=== PATIENT | female | born 1985 | race Caucasian/White ===

== ENCOUNTER 2023-03-02 09:42 | Emergency (ER) | payer OTHER, SELFPAY ==
--- NOTE | 2023-03-02 09:44 | ED.ABDPAIN ---
HPI - Abdominal Pain General Chief Complaint: Abdominal Pain Stated Complaint: L SIDE PAIN Time Seen by Provider: 03/02/23 09:44 Source: patient and RN notes reviewed History of Present Illness HPI narrative: Patient is a 37-year-old female who presents to urgent care with complaints of severe left flank pain that started approximately 3 days ago. Patient states she has had some decreased urinary output and has recently increased her caffeine and soda intake. Denies any pain with urination, hematuria, abdominal discomfort. States that she does not have any past medical history of kidney stones or pyelonephritis. Patient states she has had nausea without vomiting. States that the symptoms started after she was taking doxycycline and steroids for a sinus infection however has never had issues with those medications in the past. Denies any recurrent urinary tract infections. No other acute complaints. Patient is in obvious pain but otherwise no acute distress noted. Patient aware of the plan of care. Some parts of this dictation were generated by voice recognition software and may contain typographical and/or grammatical inaccuracies. Related Data Home Medications Medication Instructions Recorded Confirmed omeprazole 20 mg capsule,delayed 20 mg PO DAILY 03/02/23 03/02/23 release Allergies Allergy/AdvReac Type Severity Reaction Status Date / Time No Known Allergies Allergy Unverified 03/02/23 09:52 Review of Systems Review of Systems: CONSTITUTIONAL: Denies fever, chills, or sweats. EYES: Denies visual changes, redness, or discharge. ENT: Denies rhinorrhea, congestion, sore throat, or otalgia. CARDIOVASCULAR: Denies chest pain, palpitations, or edema. RESPIRATORY: Denies cough or dyspnea. GASTROINTESTINAL: Denies abdominal pain, nausea, vomiting, or diarrhea. GENITOURINARY: Reports of decreased urinary output and severe left flank pain SKIN: Denies rash or itching. MUSCULOSKELETAL: Denies back pain, joint pain, or myalgia. NEUROLOGIC: Denies headache, numbness, or weakness. All other systems reviewed are negative, except as documented in HPI. [facility] Past Medical History Medical History (Updated 03/02/23 @ 10:14 by REN Camejo) Acid reflux Vaginal delivery x 3 Surgical History Surgical History (Updated 01/09/20 @ 14:43 by Kami Whitlock MODEL SET ARTIST) History of cholecystectomy Social History Social History Smoking status: Never smoker Second hand tobacco smoke exposure: No Alcohol intake: never Comments At the time of my signature, I reviewed and agree with the nursing past medical, surgical, social, and family history. There is no relevant family history pertinent to the patient complaint. Exam Narrative: GENERAL: This is a well-nourished, well-developed patient. Tearful HEAD: normocephalic, atraumatic. EYES: PERRL. Sclera clear/white. Vision is grossly intact. EARS: External ears normal NOSE: External nose normal with no obvious nasal discharge, nares without redness, no rhinorrhea. THROAT: Mucous membranes moist NECK: Neck supple, RESPIRATORY: Clear to auscultation. Breath sounds equal bilaterally. No wheezes, rales, or rhonchi. GASTROINTESTINAL: Abdomen soft, mild left upper abdominal rebound tenderness, nondistended. Bowel sounds are active. SKIN: warm, intact with no suspicious lesions or rash, good texture and turgor. NEURO: awake, alert, and oriented to person, place and time. There were no obvious focal neurologic abnormalities. EXTREMITIES: No clubbing, cyanosis, or edema. BACK: Moderate to severe left CVA tenderness Course Course Level of Care: Express Care Visit Vital Signs Vital signs: Vital Signs Temperature 97.5 F L 03/02/23 09:55 Pulse Rate 73 03/02/23 09:55 Respiratory Rate 16 03/02/23 09:55 Blood Pressure 134/82 03/02/23 09:55 Pulse Oximetry 100 03/02/23 09:55 Temperature 97.5 F L 03/02/23 09:55 Pulse Rate 73 03/02/23
[2023-03-02 09:55] VITALS: BP 134/82; PULSE 73; RESP 16; TEMP 36.4; O2SAT 100
== END 2023-03-02 10:18 | disposition short-term general hospital (02) ==
PROVIDERS: Emergency Provider Nurse Practitioner Family; PCP Family Medicine
DX: R10.9 Unspecified abdominal pain (principal); K21.9 Gastro-esophageal reflux disease without esophagitis
CPT/HCPCS: 81003; 87086; 87088; 99213; G0463

== ENCOUNTER 2023-09-14 13:48 | Outpatient (CLI) | payer OTHER, SELFPAY ==
--- NOTE | 2023-09-14 14:19 | ECG_ITS ---
Measurements Intervals [place] Rate: 78 P: 21 AL: 144 QRS: 8 QRSD: 105 T: 14 QT: 365 QTc: 418 Interpretive Statements SINUS RHYTHM NO PREVIOUS ECG AVAILABLE FOR COMPARISON Electronically Signed On 09-14-2023 20:33:29 CDT by Mandie Amanda M.D.
[2023-09-14 14:36] LABS: Basophils Absolute Auto 0.1 K/mm3 (0.0-0.1); Basophils Percent Auto 0.5 % (0.2-1.2); Eosinophils Absolute Auto 0.2 K/mm3 (0-0.3); Eosinophils Percent Auto 1.5 % (0-4.4); Hematocrit 39.6 % (37.0-47.0); Hemoglobin 12.7 g/dL (12.0-15.0); Immature Granulocyte Absolute 0.05 K/mm3 (0.00-0.031); Immature Granulocyte Percent A 0.5 % (0-0.5); Lymphocytes Absolute Auto 4.35 K/mm3 (0.9-3.2); Lymphocytes Percent Auto 40.6 % (18.3-44.2); Mean Corpuscular HGB Conc 32.1 g/dl (32-36); Mean Corpuscular Hemoglobin 28.7 pg (26-34); Mean Corpuscular Volume 89.4 fl (80-100); Mean Platelet Volume 8.9 fl (7.4-10.4); Monocytes Absolute Auto 0.6 K/mm3 (0.1-0.6); Monocytes Percent Auto 5.7 % (2.6-8.5); Neutrophils Absolute Auto 5.5 K/mm3 (1.3-6.7); Neutrophils Percent Auto 51.2 % (45.5-73.1); Platelet Count Result 376 k/mm3 (150-375); Red Blood Count 4.43 M/mm3 (4.2-5.4); Red Cell Distribution Width 13.4 % (11.5-14.5); White Blood Count 10.7 K/mm3 (4.5-10.0)
[2023-09-14 14:48] LABS: Alanine Aminotransferase 41 U/L (6-35); Albumin Level 4.4 g/dL (3.5-5.1); Alkaline Phosphatase 65 U/L (38-126); Anion Gap 8 mmol/L (8-16); Aspartate Amino Transferase 25 U/L (14-36); Bilirubin,Total 0.4 mg/dL (0.2-1.3); Blood Urea Nitrogen 13 mg/dL (7-17); Calcium 8.9 mg/dL (8.4-10.2); Carbon Dioxide 25 mmol/L (22-30); Chloride 104 mmol/L (98-107); Estimated Glomerular Filt Rate > 60; Glucose 85 mg/dL (65-110); Partial Thromboplastin Time 28.5 SECONDS (22.3-36.8); Potassium 3.5 mmol/L (3.4-5.0); Prothrombin Time 13.3 Seconds (11.1-14.7); Sodium 137 mmol/L (137-145)
== END 2023-09-14 13:49 | disposition home or self-care (01) ==
LOC: ANHSURGERY 13:51
PROVIDERS: PCP Family Medicine; Visit Provider Urology
DX: Z01.818 Encounter for other preprocedural examination (principal); N81.4 Uterovaginal prolapse, unspecified; N39.3 Stress incontinence (female) (male)
CPT/HCPCS: 36415; 80053; 85025; 85610; 85730; 86850; 86900; 86901; 93005

== ENCOUNTER 2023-09-26 00:55 | Day surgery (SDC) | payer OTHER, SELFPAY ==
--- NOTE | 2023-09-14 13:38 | PC.NURSE ---
Addendum entered by Rosa Elena Smith RN 09/14/23 14:21: PT AWARE THAT SHE CAN TAKE UBRELVY DAY OF SURGERY IF NEEDED Original Note: PRE-OP INSTRUCTIONS, PLEASE READ CAREFULLY Report to the Outpatient Waiting Room, entrance under the green pavilion located off [facility], at time _0930_ on date _09/26/23_. Planned Procedure Time: _1130_. PACK A SMALL OVERNIGHT BAG AND LEAVE IN THE CAR Time changes happen often and if your time is changed the preop area will call you the afternoon before. - You and your visitor will be asked to self-screen and do not enter if you have any COVID symptoms. - A mask is optional within the hospital at this time. -VISITING HOURS 8AM-8PM Patients may have clear liquids (water, carbonated beverages, clear teas, apple juice) until 3 hours prior to surgery (0830 AM) with a maximum of 20 ounces. - No food from midnight until time of surgery Take the following medications with a SIP of water the morning of surgery: _NONE_ DO NOT STOP ANY OF YOUR OTHER PRESCRIPTION MEDICATIONS PRIOR TO SURGERY ?EXCEPT THE FOLLOWING Medications to discontinue per physician ___NONE____, Date to take last dose Please no make-up, nail swedish, hairspray, perfume, deodorant, or body powder the day of surgery. No jewelry (including any body piercings) or valuables the day of surgery, leave them at home. Please take a shower or bath the night before, or the morning of, surgery with an antibacterial soap. Wear comfortable, loose fitting clothing. - Jewelry must be removed prior to entering the operating room. Rings and piercings that are not removed may be cut off. - The hospital will not accept responsibility for valuables. - Please leave all valuables, including medications, at home the day of surgery. If you are going home after surgery, a licensed patient transportation driver must drive you home. - NO public transportation without another adult if you receive anesthesia. - We recommend that an adult stay with you for 24 hours following discharge. - We also recommend that you do not drive, make important decision, drink alcoholic beverages, or take any drugs that were not prescribed by your health care provider for at least 24 hours after your discharge time. Follow any additional instructions given to you from your surgeon. If you or anyone in your household have experienced Covid symptoms in the past week, please notify your surgeon or the nurse liaison at the phone number below for possible testing. Instructions given to _PATIENT_and asked if any additional questions and then verbalized understanding. Patient advised to call surgeon office or pre surgery nurse liaison [phone] if any additional questions.
[2023-09-14 14:00] VITALS: BP 136/80; PULSE 88; RESP 20; TEMP 36.5; O2SAT 99; BMI 45.1
--- NOTE | 2023-09-23 14:39 | WPDANESEPPF ---
Anes - Initial Pre Proc Eval Procedure: Operation Date: 09/26/23 11:30 Proposed Procedures p Robotic Sacrocolpopexy - Cr Zavala MD s Urethral Sling, - Cr Zavala MD s Robotic Assisted Supracervical Hysterectomy With Bilateral Salpingectomy - Caitlin Lala MD Date/Time: 09/23/23 14:39 Surgeon: Cr Zavala MD Pre Op Diagnosis: uterovaginal prolapse, stress incontience Patient Data Age: 38 Gender: F Height: 1.73 m Weight: 134.6 kg Last Vital Signs Temp 97.7 F 09/14/23 14:00 Pulse 88 09/14/23 14:00 Resp 20 09/14/23 14:00 BP 136/80 09/14/23 14:00 Pulse Ox 99 09/14/23 14:00 O2 Del Method Room Air 09/14/23 14:00 Allergies Allergy/AdvReac Type Severity Reaction Status Date / Time No Known Allergies Allergy Verified 09/26/23 09:32 Home Medications Medication Instructions Recorded Confirmed Type omeprazole 20 mg capsule,delayed 20 mg PO DAILY 03/02/23 09/26/23 History release ubrogepant 100 mg tablet (Ubrelvy) 100 mg PO ONCE PRN Migraine 09/14/23 09/26/23 History Headache Patient hx anesthesia problems: none Family hx anesthesia problems: none Results Review: All pre-operative results and documents have been reviewed as part of the pre-operative evaluation. [facility] Past Medical History Medical History Acid reflux History of endometrial biopsy 06/23/2023 Uterine prolapse affecting , antepartum Vaginal delivery x 3 Surgical History Surgical History History of cholecystectomy Social History Social History Smoking status: Never smoker Second hand tobacco smoke exposure: No Alcohol intake: never Substance use: never Substance use type: does not use Lack of Transportation: No Lack of Food: Never True Current Housing: I Have Housing Concerned About Future Housing: No Difficulty Paying Gas/Electric Bills: No Difficulty Paying for Meds: No Currently Unemployed: No Education: Trade/Vocational Certificate Difficulty w/ Childcare or Family Care: No Living arrangements: with family Occupation/Education: occupation Gender identity (if verbalized by the patient): Female Sexual Orientation (if Verbalized by the Patient): Straight or Heterosexual Spiritual care concerns: No Anes - Eval Final PreProcedure Day of Procedure 09/23/23 14:39 Patient weight: normal Heart: regular rate and rhythm Lungs: clear to auscultation Airway: Mallampati scale class II Neurological: alert and oriented Last oral intake: >/= 8 hours ASA classification: III Emergent: no Anesthetic plan: proceed Anesthesia type and monitoring: general ETT and standard monitoring Results Review: All pre-operative results and documents have been reviewed as part of the pre-operative evaluation. Informed Consent: The patient's anesthetic plan and its attendant risks and benefits were discussed with the patient/family/POA. Questions were solicited and answers provided to the satisfaction of the patient/family/POA.
--- NOTE | 2023-09-25 09:29 | PM.IMHP ---
H&P: HPI History of Present Illness Date/Time: 09/25/23 09:29 Chief Complaint: surgical procedure Narrative: this is a young woman with uterine prolapse as well as stress incontinence Review of Systems Review of Systems: All systems reviewed & are unremarkable except as noted in HPI and below PMFSH Past Medical History Medical History (Updated 09/25/23 @ 09:30 by Cr Zavala MD) Acid reflux History of endometrial biopsy 06/23/2023 Uterine prolapse affecting , antepartum Vaginal delivery x 3 Surgical History Surgical History History of cholecystectomy Social History Social History Smoking status: Never smoker Second hand tobacco smoke exposure: No Alcohol intake: never Substance use: never Substance use type: does not use Lack of Transportation: No Lack of Food: Never True Current Housing: I Have Housing Concerned About Future Housing: No Difficulty Paying Gas/Electric Bills: No Difficulty Paying for Meds: No Currently Unemployed: No Education: Trade/Vocational Certificate Difficulty w/ Childcare or Family Care: No Living arrangements: with family Occupation/Education: occupation Gender identity (if verbalized by the patient): Female Sexual Orientation (if Verbalized by the Patient): Straight or Heterosexual Spiritual care concerns: No Meds Home Medications and Allergies Home Medications Medication Instructions Recorded Confirmed Type omeprazole 20 mg capsule,delayed 20 mg PO DAILY 03/02/23 09/14/23 History release ubrogepant 100 mg tablet (Ubrelvy) 100 mg PO ONCE PRN Migraine 09/14/23 09/14/23 History Headache Allergies Allergy/AdvReac Type Severity Reaction Status Date / Time No Known Allergies Allergy Verified 09/14/23 13:59 Exam Narrative: no acute distress obese alert and orient x3 normal breathing uterine prolapse to the introitus urethral mobility Assessment and Plan Assessment and plan (1) MIKA (stress urinary incontinence, female): Code(s): N39.3 - Stress incontinence (female) (male) Status: Acute (2) Uterine prolapse: Code(s): N81.4 - Uterovaginal prolapse, unspecified Status: Acute Plan robotic colpopexy and urethral sling. She understands risks of bleeding, infection, damage to surrounding organs, damage to the urinary tract, recurrence of prolapse, vaginal mesh exposure, obstructive voiding requiring secondary procedure, she understands the risk of recurrence of prolapse. We discussed issues surrounding prolapse repair in young women. Weight loss encouraged preoperatively
--- NOTE | 2023-09-25 20:57 | PM.IMHP ---
H&P: HPI History of Present Illness Date/Time: 09/25/23 20:57 Chief Complaint: uterine prolapse Narrative: Katya is a 38yo [id number] who presents for scheduled surgery; hysterectomy due to uterine prolapse. She had a normal EMB. Pap was NILM/HPV neg. She reports her cycles are regular, but very heavy and very painful. She has to wear tampons with her pads and will bleed through them. She is sexually active w/o issue. She is not on BC, but does not desire future children. 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 Labs show mild iron deficiency anemia; she's now taking iron. She reports bothersome leakage of urine and has noticed a vaginal bulge-- will be doing combined case with Dr. Zavala. Review of Systems Constitutional: Constitutional: Denies chills, Denies fever(s) and Denies headache(s) Eyes: Eyes: Denies change in vision ENT: Denies dizziness and Denies headache(s) Cardiovascular: Cardiovascular: Denies chest pain and Denies dyspnea Respiratory: Respiratory: Denies cough and Denies dyspnea Gastrointestinal: Gastrointestinal: Denies abdominal pain and Denies change in stool character Genitourinary: Genitourinary: Denies abnormal menses, Denies pelvic pain, Denies vaginal discharge, Denies vaginal odor and Denies vaginal pruritus Neurologic: Denies dizziness and Denies headache(s) Psychiatric: Psychiatric: Denies anxiety and Denies depression PMFSH Past Medical History Medical History Acid reflux History of endometrial biopsy 06/23/2023 Uterine prolapse affecting , antepartum Vaginal delivery x 3 Surgical History Surgical History History of cholecystectomy Social History Social History Smoking status: Never smoker Second hand tobacco smoke exposure: No Alcohol intake: never Substance use: never Substance use type: does not use Lack of Transportation: No Lack of Food: Never True Current Housing: I Have Housing Concerned About Future Housing: No Difficulty Paying Gas/Electric Bills: No Difficulty Paying for Meds: No Currently Unemployed: No Education: Trade/Vocational Certificate Difficulty w/ Childcare or Family Care: No Living arrangements: with family Occupation/Education: occupation Gender identity (if verbalized by the patient): Female Sexual Orientation (if Verbalized by the Patient): Straight or Heterosexual Spiritual care concerns: No Meds Home Medications and Allergies Home Medications Medication Instructions Recorded Confirmed Type omeprazole 20 mg capsule,delayed 20 mg PO DAILY 03/02/23 09/14/23 History release ubrogepant 100 mg tablet (Ubrelvy) 100 mg PO ONCE PRN Migraine 09/14/23 09/14/23 History Headache Allergies Allergy/AdvReac Type Severity Reaction Status Date / Time No Known Allergies Allergy Verified 09/14/23 13:59 Exam Const: General: cooperative, comfortable, no acute distress and obese Orientation/consciousness: patient oriented x3 Resp: Effort & Inspection: normal respiratory effort Cardio: Rate: regular rate GI: Inspection: normal to inspection GI Palp: No abdominal tenderness and Yes Soft to palpation : Other: deferred to OR Skin: General skin exam: normal color Neuro: General: patient oriented x3 Extrem: General: normal to inspection Psych: Appearance: grossly normal Affect: normal affect Attitude: cooperative Assessment and Plan Assessment and plan (1) Adenomyosis: Code(s): N80.03 - Adenomyosis of the uterus Status: Acute (2) Menorrhagia: Qualifiers: Menorrhagia type: with regular cycle Qualified Code(s): N92.0 - Excessive and frequent menstruation with regular cycle Code(s): N92.0 - Excessive and frequent menstruation with regular cycle Status: Acute (3) Uterine prolapse:
[2023-09-26] VITALS (10 sets, daily range): BP systolic 104–145; BP diastolic 69–91; PULSE 65–99; RESP 12–18; TEMP 36.2–36.6; O2SAT 93–99
--- NOTE | 2023-09-26 07:14 | WPDHPUPDATE1 ---
History and Physical Update Update Date/Time: 09/26/23 07:14 History and Physical has been reviewed, including an updated exam of the patient. There are NO changes in the patient's condition. Risks, benefits, and alternatives have been discussed and questions answered. Patient agrees to proceed with procedure.
[2023-09-26] MEDS: ACETAMINOPHEN 500 MG TABLET 1000 MG PO (09:40)
[2023-09-26] MEDS: LACTATED RINGERS 1,000 ML 30 ML IV CONT ×2 (10:14→15:27)
[2023-09-26] MEDS: KETOROLAC 15 MG/ML VIAL (*BKC) IV PUSH (10:15)
--- NOTE | 2023-09-26 11:49 | WPDHPUPDATE1 ---
History and Physical Update Update Date/Time: 09/26/23 11:49 History and Physical has been reviewed, including an updated exam of the patient. There are NO changes in the patient's condition. Risks, benefits, and alternatives have been discussed and questions answered. Patient agrees to proceed with robotic assisted supracervical hysterectomy with bilateral salpingectomy.
[2023-09-26] MEDS: ceFAZolin 3 GM/D5W 100 ML 100 ML IVPB (11:56)
[2023-09-26] MEDS: metroNIDAZOLE 500 MG/ISO 100ML 500 MG/100 ML BAG 100 MG IVPB ×2 (12:08→20:30)
[2023-09-26] MEDS: BUPIVACAINE/EPINEPHRINE 0.5% 50 ML VIAL INFILTRATE (12:56)
--- NOTE | 2023-09-26 13:55 | P.OP_ITS ---
Procedure Note - Detailed Date of Procedure 09/26/23 Pre-op Diagnosis uterovaginal prolapse, stress incontience Post-op Diagnosis Same Procedure Performed robotic assisted supracervical hysterectomy with bilateral salpingectomy Surgeon Caitlin Lala MD Consulting Software Engineer Christiano Anesthesia General Findings Uterine prolapse; hypertrophied cervix (normal appearing). Enlarged bulbous uterus. Normal ovaries and fallopian tubes bilaterally. Good hemostasis at end of case. Description of Procedure Katya was taken to the operating room where she was placed under general anesthesia without issues. She received 2 g Ancef and 500mg metronidazole. She was then prepped and draped in the usual sterile fashion in the dorsal lithotomy position with her legs in low Deandre stirrups and her arms tucked at her side, with a strap over her chest. A time-out was performed with both, Dr. Zavala and I in the room. A Sullivan catheter was placed under aseptic technique and a sponge on a stick was placed in the vagina. Dr. Zavala placed the laparoscopic ports and docked the robot. The instruments were placed intra- abdominally under direct visualization. I started on the robotic console, starting my hysterectomy on the right side. The ureter was easily identified transperitoneally and well out of the surgical field. The fallopian tube was elevated and the mesosalpinx was coagulated and transected. The round ligament was clamped, coagulated, and transected. The uterine ovarian artery was then serially clamped, coagulated, and transected with good hemostasis. The broad ligament was then dissected anteriorly and posteriorly skeletonizing the uterine artery. The bladder flap was then developed on the right side and carried around the left, anteriorly. The uterine artery was then serially clamped and coagulated. Once the vessel was adequately coagulated, it was then transected with good hemostasis. The same procedure was then performed on the left side without complications. The uterus was noted to be devascularized. The bladder flap was verified out of the surgical field and the uterus was removed from the cervix anteriorly and continued in a clockwise fashion until the uterus was released. The uterus was then fragmented into 6 pieces and placed within two laparoscopic bags. Good hemostasis was noted. I then undocked from the robot and Dr. Zavala sat on the console to finish his portion of the procedure. She will stay overnight after he has finished the repairs for prolapse and MIKA. Estimated Blood Loss 80 Pathology Yes (uterus and bilateral fallopian tubes (fragmented)) Complications No immediate complications Condition Stable Disposition No change [facility] Billing Surgery - Charge Forward: Surgery Billing
--- NOTE | 2023-09-26 15:35 | W.PM.PROC2 ---
Procedure Note - Detailed Date of Procedure 09/26/23 Pre-op Diagnosis uterovaginal prolapse, stress incontience Post-op Diagnosis Same Procedure Performed Robotic assisted laparoscopic sacral colpopexy Urethral sling Cystoscopy Surgeon Cr Zavala MD Anesthesia General Indications A woman with uterine prolapse as well as stress incontinence. She desires surgical correction. She is here for the above. She understands risks of bleeding, infection, diskitis, damage to surrounding organs, bowel injury, bowel obstruction, mesh related complications including exposure and extrusion, postoperative voiding dysfunction including incontinence and retention, need for ancillary procedures, dyspareunia, recurrence of prolapse, and other perioperative intraoperative postoperative complications. She is at increased risks of complications and failure prolapse and incontinence treatment due to her age and body habitus. After discussion of all the risks benefits and alternatives she agrees to proceed. Findings See below Description of Procedure She was correctly identified. Informed consent obtained. She from the operating room. She was given general anesthesia. She was given appropriate perioperative antibiotics. She was placed a low lithotomy position. Pressure points were padded. A time-out performed. I marked out the skin 3 fingerbreadths cephalad to the umbilicus. I anesthetized the skin. I incised the skin. I dissected down to the fascia. I grasped the fascia with Coco clamps. I entered the fascia sharply in a Salas type technique. I placed sutures for later fascial closure. I placed a midline trocar. I examined the abdomen. There is no sign of any injury. Under direct vision I placed 2 additional trocars in the right upper quadrant and 2 additional trocars the left upper quadrant. She was placed in steep Trendelenburg. The robot was docked. Her cutter woodwind reeds completed their portion of the procedure. Please see that operative report for details. I then sat at the console. The Sizer in the vagina created plane on the anterior and posterior vaginal wall. I took great care not to injure the vagina, bladder, or rectum. I introduced the mesh into the abdomen. I sewed the anterior leaflet of mesh on the anterior vaginal wall. I sewed the posterior leaflet of mesh on the posterior vaginal wall. This was done with several sutures of 2 0 Swain-Rosalio. I reflected the colon laterally. I opened the posterior peritoneum over the sacral promontory. I carried this into the cul-de-sac. I freed up the edges for later retroperitonealization. I located the anterior longitudinal ligament the sacrum. I cleaned off all fatty tissues. I then tensioned my mesh appropriately. I did a vaginal exam the bedside. I assured prolapse reduction without undue tension. I then sewed the proximal leaflet of mesh onto the anterior longitudinal ligament of the sacrum with several sutures of 2 0 Swain-Rosalio. I then used a 2 0 Monocryl to completely and meticulously retroperitonealized all mesh. I allowed the colon to go back to its normal anatomic location. There is no sign of any impingement. The specimen was then removed. All ports removed. Fascia was tied down. There was no fascial defect. skin was closed with Monocryl and surgical glue. She was repositioned and prepped for urethral sling. I marked out the inner thigh incisions. I anesthetized the skin and made the incisions. I then anesthetized the anterior vaginal wall at the mid urethra. I made a 1 cm incision. I dissected out laterally taking great care not to injure the refilled vaginal wall. I passed the helical trocars. I did this 1st on the left and then on the right. This was done from the thigh incision towards the vaginal incision. Sling was connected to the trocars and brought out the thigh incision. I tensioned the sling appropriately. I cut and the plastic sheaths. I closed the incision wi
[2023-09-26] MEDS: fentaNYL CITRATE INJ (*CRX) 100 MCG/2 ML VIAL 25 MCG IV PUSH ×4 (15:57→16:30)
[2023-09-26] MEDS: ONDANSETRON INJ 4 MG/2 ML VIAL IV PUSH (16:46)
[2023-09-26] MEDS: KCL 20 MEQ/D5/0.45% SOD CHL 1,000 ML 100 ML IV CONT (17:21)
[2023-09-26] MEDS: KETOROLAC 30 MG/ML VIAL (*BKC) IV PUSH (17:22)
[2023-09-26] MEDS: ceFAZolin 1 GM/NS 50 ML 1 GM/50 ML BAG IVPB (21:30)
[2023-09-26] MEDS: HYDROcodone/acetaminophen (*CRX) 5-325 MG TABLET 1 TAB PO (22:04)
[2023-09-27] VITALS: BP 124/69; PULSE 81; RESP 18; TEMP 36.6; O2SAT 98
[2023-09-27] MEDS: metroNIDAZOLE 500 MG/ISO 100ML 500 MG/100 ML BAG 100 MG IVPB ×2 (04:00→12:44)
[2023-09-27] MEDS: HYDROcodone/acetaminophen (*CRX) 5-325 MG TABLET 1 TAB PO ×3 (04:00→15:51)
[2023-09-27] MEDS: ceFAZolin 1 GM/NS 50 ML 1 GM/50 ML BAG IVPB ×2 (04:00→13:40)
[2023-09-27 04:20] VITALS: BP 122/73; PULSE 85; RESP 18; TEMP 36.8; O2SAT 99
[2023-09-27 05:27] LABS: Hematocrit 32.5 % (37.0-47.0); Hemoglobin 11.4 g/dL (12.0-15.0); Mean Corpuscular HGB Conc 35.1 g/dl (32-36); Mean Corpuscular Hemoglobin 32.6 pg (26-34); Mean Corpuscular Volume 92.9 fl (80-100); Mean Platelet Volume 8.9 fl (7.4-10.4); Platelet Count Result 371 k/mm3 (150-375); Red Cell Distribution Width 14.2 % (11.5-14.5); White Blood Count 14.5 K/mm3 (4.5-10.0)
[2023-09-27 05:37] LABS: Anion Gap 5 mmol/L (8-16); Blood Urea Nitrogen 11 mg/dL (7-17); Calcium 8.4 mg/dL (8.4-10.2); Carbon Dioxide 25 mmol/L (22-30); Chloride 106 mmol/L (98-107); Estimated CRCL calculation 137 ml/min; Estimated Glomerular Filt Rate > 60; Glucose 114 mg/dL (65-110); Potassium 4.1 mmol/L (3.4-5.0); Sodium 136 mmol/L (137-145)
--- NOTE | 2023-09-27 06:14 | PM.GYNPNOP ---
SOCIAL WORK THERAPIST - A/P Assessment and plan (1) S/P laparoscopic supracervical hysterectomy: Code(s): Z90.711 - Acquired absence of uterus with remaining cervical stump Status: Acute (2) S/P sacrocolpopexy: Code(s): Z98.890 - Other specified postprocedural states Status: Acute Postoperative Procedures: Procedures Operation Date: 09/26/23 11:30 Actual Procedure Side Surgeon p Robotic Sacrocolpopexy Cr Zavala MD s Urethral Sling, Cr Zavala MD s Robotic Assisted Supracervical Hysterectomy With Bilateral Salpingectomy Bilateral Caitlin Lala MD Postoperative day: 1 Postoperative status: doing well Postoperative plan: routine post-op care and discharge Time Spent With Patient Time: Total time spent is greater than 50% in coordination of care (as documented) at patient's floor/unit and/or counseling patient: Time with patient: less than 15 minutes SOCIAL WORK THERAPIST- PN:Subj Post-Op Subjective Date/time seen: 09/27/23 07:14 Interval history: POD#1 Katya reports doing well today. No issues overnight. Her pain is controlled with PO meds. She has tolerated regular diet. She denies any vaginal bleeding. She has voided without issue. She has not passed flatus. She has ambulated and denies any symptoms of anemia. Review of Systems Review of Systems: All systems reviewed & are unremarkable except as noted in HPI and below (HPI) Constitutional: Constitutional: Denies chills, Denies fever(s) and Denies headache(s) Eyes: Eyes: Denies change in vision ENT: Denies dizziness and Denies headache(s) Cardiovascular: Cardiovascular: Denies chest pain and Denies rapid heart rate Respiratory: Respiratory: Denies cough Genitourinary: Genitourinary: Denies abnormal vaginal bleeding Neurologic: Denies dizziness and Denies headache(s) Exam Const: General: cooperative, healthy appearing, comfortable and no acute distress Orientation/consciousness: patient oriented x3 Resp: Effort & Inspection: normal respiratory effort Auscultation: clear to auscultation bilaterally Cardio: Rate: regular rate GI: Inspection: normal to inspection and incision (5 LSC incisions ) GI Palp: Yes abdominal tenderness (appropriate) and Yes Soft to palpation Auscultation: normal bowel sounds : Other: normal bleeding on pad Skin: General skin exam: normal color Neuro: General: patient oriented x3 Psych: Appearance: grossly normal Affect: normal affect Attitude: cooperative SOCIAL WORK THERAPIST - PN: Obj Data Vital Signs Vital Signs: Vital Signs - 24 hr 09/26/23 10:11 09/26/23 15:27 09/26/23 15:30 Temperature 97.4 F L 97.1 F L Pulse Rate 99 93 76 Respiratory Rate 18 17 13 Blood Pressure 145/91 H 111/69 111/71 Pulse Oximetry 99 98 98 Oxygen Delivery Room Air Simple Face Mask Simple Face Mask Oxygen Flow Rate 6 6 09/26/23 15:45 09/26/23 16:00 09/26/23 16:15 Temperature Pulse Rate 82 84 67 Respiratory Rate 15 12 12 Blood Pressure 105/69 113/76 104/87 Pulse Oximetry 96 93 97 Oxygen Delivery Room Air Room Air Nasal Cannula Oxygen Flow Rate 2 09/26/23 16:30 09/26/23 16:42 09/26/23 17:15 Temperature 97.5 F L Pulse Rate 83 79 65 Respiratory Rate 17 13 14 Blood Pressure 111/70 114/75 125/82 Pulse Oximetry 95 93 97 Oxygen Delivery Nasal Cannula Nasal Cannula Oxygen Flow Rate 2 2 09/26/23 21:25 09/26/23 21:25 09/27/23 00:00 Temperature 97.9 F 98 F Pulse Rate 78 81 Respiratory Rate 18 18 Blood Pressure 129/79 124/69 Pulse Oximetry 98 98 98 Oxygen Delivery Nasal Cannula Oxygen Flow Rate 1 09/27/23 00:00 09/27/23 04:20 09/27/23 04:20 Temperature 98.2 F Pulse Rate 85 Respiratory Rate 18 Blood Pressure 122/73 Pulse Oximetry 99 Oxygen Delivery Room Air Room Air Oxygen Flow Rate Intake/Output Intake/Output: Intake & Output 09/25/23 09/25/23 09/26/23 09/27/23 00:59 23:59 23:59 23:59 Intake Total 1550 1700 Output Total 300 1200 Balance 1250 50
[2023-09-27 08:15] VITALS: BP 126/63; PULSE 82; RESP 16; TEMP 36.4; O2SAT 95
--- NOTE | 2023-09-27 08:16 | WPDANESPN ---
Anes - Prog Note Post-Op Date/Time: 09/27/23 08:16 Cardiovascular status: normal Respiratory status: normal Airway patency: baseline Mental status: baseline Post-Op hydration status: normal Vital Signs: Last Vital Signs Temp 36.8 C 09/27/23 04:20 Pulse 85 09/27/23 04:20 Resp 18 09/27/23 04:20 BP 122/73 09/27/23 04:20 Pulse Ox 99 09/27/23 04:20 O2 Del Method Room Air 09/27/23 04:20 O2 Flow Rate 1 09/26/23 21:25 Pain Score (VAS): 0 I/O: Intake & Output 09/26/23 09/27/23 09/27/23 23:59 07:59 15:59 Intake Total 350 1700 Output Total 30 1200 Balance 320 500 Laboratory Tests 09/27/23 04:16 09/27/23 04:16 09/27/23 04:16 WBC 14.5 H RBC 3.50 L Hgb 11.4 L Hct 32.5 L MCV 92.9 MCH 32.6 MCHC 35.1 RDW 14.2 Plt Count 371 MPV 8.9 Sodium 136 L Potassium 4.1 Chloride 106 Carbon Dioxide 25 Anion Gap 5 L BUN 11 Creatinine 0.70 Estim Creat Clear Calc 137 Estimated GFR > 60 Glucose 114 H Calcium 8.4 Post-procedural complaints: none Patient Feedback: Patient satisfied with anesthetic care.
[2023-09-27] MEDS: PANTOPRAZOLE 40 MG TABLET PO (08:25)
[2023-09-27] MEDS: DOCUSATE SODIUM 100 MG CAPSULE PO (08:25)
[2023-09-27] MEDS: ENOXAPARIN 30 MG/0.3 ML SYRINGE SUB-Q (08:26)
[2023-09-27] MEDS: KETOROLAC 30 MG/ML VIAL (*BKC) IV PUSH (08:34)
== END 2023-09-27 16:10 | disposition home or self-care (01) ==
LOC: ANHSURGERY 09:25 → ANHOB2 16:50
PROVIDERS: Obstetrics & Gynecology; PCP Family Medicine; Visit Provider Urology
PROC: (CPT 57425; principal; 2023-09-26 11:30)
PROC: (CPT 57425; 2023-09-26 11:30)
PROC: (CPT 58542; 2023-09-26 11:30)
DX: N81.4 Uterovaginal prolapse, unspecified (principal); N39.3 Stress incontinence (female) (male); N92.0 Excessive and frequent menstruation with regular cycle; D25.1 Intramural leiomyoma of uterus; K21.9 Gastro-esophageal reflux disease without esophagitis
CPT/HCPCS: 58542; 57425; 57288; S2900 ×2; 36415; 80048; 80053; 85025; 85027; 85610; 85730; 86850; 86900; 86901; 88307; 93005; 99199; A9270; C1758; C1769; C1771; C1781; J0330; J0690; J1100; J1170; J1650; J1836; J1885; J2250; J2405; J2704; J3010; J3480; J7030; J7120